=== PATIENT | female | born 1955 | race Two or more races ===

== ENCOUNTER 2018-05-26 00:19 | Inpatient (IN) | payer OTHER ==
[~2018-05-26] VITALS: Ht 157.5 cm; Wt 72.1 kg
[~2018-05-26 00:19] MED LIST: FLONASE16 GM NASAL; LYRICA50 MG; SINGULAIR10 MG; ZEBETA5 MG; ZYRTEC10 M3
[2018-05-26] MEDS ORDERED: NEURONTIN300 MG (00:29)
--- NOTE | 2018-05-26 00:32 | NUR ---
SE RECIBE PTE ALERTA Y ORIENTADA POR FATIMAH. PTE REFIERE PRESENTAR DOLOR EPIGASTRICO Y DE TU DESDE HACE 3 HORAS.
--- NOTE | 2018-05-26 03:27 | NUR ---
SE EDUCA A PTE SOBRE [place] MEDICO ESTA REFIERE ENTENDER. SE ADMINISTRAN EMDICAMENTOS APT ELOS CUALES TOLERA. Y SE JOE MUESTRAS DE LABORATORIO UTILIZANDO MEDIDAS ASEPTICAS. SE NOTIFICA ESTUDIO DE SONOGRAFIA PENDIENTE A REALIZAR. SE COLOCA H/L A PTE EL CUAL SE ENCUENTRA PATENTE GUSTAVO DE EDEMA Y ENROJECIMIENTO. PROCEDIMIENTOS REALIZADOS POR MR. ANSARI.
[2018-05-28] MEDS ORDERED: CIPRO500 MG PO (11:03)
[2018-05-28] MEDS ORDERED: ZANTAC300 MG PO (11:04)
== END 2018-05-28 11:28 | disposition home or self-care (01) | DRG 419 ==
LOC: ER 00:19 → SEC-K 07:53 → SURH 07:53 → MEDJ 13:45 → SURH 14:15
PROVIDERS: ADMIT Surgery
PROC: BW40ZZZ Ultrasonography of Abdomen (ICD-10-PCS; 2018-05-26)
PROC: BF12YZZ Fluoroscopy of Gallbladder using Other Contrast (ICD-10-PCS; 2018-05-27)
PROC: 0FT44ZZ Resection of Gallbladder, Percutaneous Endoscopic Approach (ICD-10-PCS; principal; 2018-05-27 12:45)
PROC: 0WQF4ZZ Repair Abdominal Wall, Percutaneous Endoscopic Approach (ICD-10-PCS; 2018-05-27 12:45)
DX: K80.00 Calculus of gallbladder with acute cholecystitis without obstruction (principal); K42.9 Umbilical hernia without obstruction or gangrene; J30.9 Allergic rhinitis, unspecified; M79.7 Fibromyalgia; I10 Essential (primary) hypertension; K76.0 Fatty (change of) liver, not elsewhere classified